=== PATIENT | male | born 1945 | race Caucasian/White ===

== ENCOUNTER 2020-12-31 16:35 | Inpatient (IN) | payer MEDICARE, MEDICAID ==
[~2020-12-31] VITALS: Ht 167.6 cm; Wt 68.9 kg
[2020-12-31] MEDS ORDERED: DEXTROSE 50% WATER 50ML SYRINGE IV ONE (17:00)
[2020-12-31] MEDS ORDERED: PIPERACILLIN/TAZOBACTAM 3.375GM/50ML PREMIX IV ONE (17:00)
[2020-12-31] MEDS ORDERED: PIPERACILLIN/TAZ 3.375G PREMIX 50 ML IV ONE (17:00)
[2020-12-31 18:06] LABS: BASOPHILS % 0.2 % (0.0-2.0); EOSINOPHILS % 0.7 % (0.0-5.0); HEMATOCRIT. 26.7 % (42.0-52.0); HEMOGLOBIN. 8.9 g/dL (14.0-18.0); LYMPHOCYTES % 7.2 % (20.0-50.0); MEAN CORPUSCULAR HEMOGLOBIN 28.8 pg (28.0-32.0); MEAN CORPUSCULAR VOLUME 86.5 fL (80.0-94.0); MEAN PLATELET VOLUME 7.3 fl (7.4-10.4); NEUTROPHILS % 84.9 % (40.0-76.0); PLATELET 427 x1000/uL (130-400); RED BLOOD CELL COUNT 3.09 mill/uL (4.7-6.1); RED CELL DISTRIBUTION WIDTH 13.6 % (11.6-14.6)
[2020-12-31 18:13] LABS: CHLORIDE 111 mEq/L (98-107)
[2020-12-31 18:52] LABS: D-DIMER 4.15 mg/L FEU (<0.50); INR 1.2; PROTHROMBIN TIME 12.4 sec (9.6-11.0)
[2020-12-31 20:26] LABS: CLARITY URINE CLEAR (CLEAR); COLOR URINE YELLOW (YELLOW); KETONES URINE NEGATIVE (NEGATIVE); LEUKOCYTE ESTERASE URINE NEGATIVE (NEGATIVE); NITRITE URINE NEGATIVE (NEGATIVE); OCCULT BLOOD URINE TRACE (NEGATIVE); PROTEIN URINE 1+ (NEGATIVE); SPECIFIC GRAVITY URINE 1.019 (1.005-1.030); UROBILINOGEN URINE 0.2 E.U./dL (0.2-1.0)
[2021-01-01] VITALS (7 sets, daily range): BP systolic 110–159; BP diastolic 54–88
[2021-01-01] MEDS ORDERED: DEXTROSE 50% WATER 50ML SYRINGE IV SCH (01:00)
[2021-01-01] MEDS: DEXT 10% WATER 1,000 ML IV SCH ×3 (01:05→22:17)
[2021-01-01] MEDS ORDERED: DEXTROSE 50% WATER 50ML SYRINGE IV PRN (04:00)
[2021-01-01] MEDS: ONDANSETRON HCL 4MG/2ML INJ IV PRN ×2 (05:50→17:21)
[2021-01-01] MEDS: BLOOD SUGAR DIAGNOSTIC STRIP TEST SCH ×4 (06:33→22:10)
[2021-01-01] MEDS: INSULIN LISPRO 100 UNITS/ML SUBCUT SCH ×4 (07:50→21:00)
[2021-01-01 08:19] LABS: HEMATOCRIT 25.9 % (42.0-52.0); HEMOGLOBIN 8.5 g/dL (14.0-18.0); MEAN CORPUSCULAR HEMOGLOBIN 28.4 pg (28.0-32.0); MEAN CORPUSCULAR VOLUME 86.1 fL (80.0-94.0); PLATELET 388 x1000/uL (130-400); RED BLOOD CELL COUNT 3.01 mill/uL (4.7-6.1); RED CELL DISTRIBUTION WIDTH 13.4 % (11.6-14.6)
[2021-01-01] MEDS ORDERED: ASPIRIN 81MG TABLET PO SCH (09:00)
[2021-01-01] MEDS: AMLODIPINE 10MG TABLET PO SCH (09:00)
[2021-01-01] MEDS ORDERED: NALOXONE HCL 0.4MG/ML VIAL IV PRN (11:45)
[2021-01-01] MEDS: MORPHINE SULFATE 2 MG/ML CPJ (NOT FOR IM USE) IV PRN (12:23)
[2021-01-01 14:55] LABS: FOLIC ACID (FOLATE) SERUM >20 ng/mL ng/mL (>5.38)
[2021-01-01 15:06] LABS: VITAMIN B12 SERUM 1142 pg/mL (211-911)
[2021-01-01 15:14] LABS: TOTAL IRON BINDING CAPACITY 206 ug/dL (250-450)
[2021-01-01 15:17] LABS: FERRITIN 159 ng/mL (22-322)
[2021-01-01] MEDS: METRONIDAZOLE 500 MG PREMIX 100 ML IV SCH ×2 (16:29→22:09)
[2021-01-01] MEDS: SUCRALFATE 1 G/10 ML UDC PO SCH ×2 (17:21→22:09)
[2021-01-01] MEDS: PANTOPRAZOLE SODIUM 40 MG/VIAL IV SCH (17:21)
[2021-01-01] MEDS: IRON SUCROSE COMPLEX 100 MG/5 ML ML IV SCH (22:10)
[2021-01-02] VITALS: BP 103/64
[2021-01-02 04:00] VITALS: BP 125/59
[2021-01-02 05:28] LABS: BASOPHILS % 0.3 % (0.0-2.0); EOSINOPHILS % 1.3 % (0.0-5.0); HEMATOCRIT. 25.8 % (42.0-52.0); HEMOGLOBIN. 8.5 g/dL (14.0-18.0); LYMPHOCYTES % 13.6 % (20.0-50.0); MEAN CORPUSCULAR HEMOGLOBIN 28.5 pg (28.0-32.0); MEAN CORPUSCULAR VOLUME 86.4 fL (80.0-94.0); MEAN PLATELET VOLUME 7.4 fl (7.4-10.4); MONOCYTES % 8.7 % (2.0-8.0); NEUTROPHILS % 76.1 % (40.0-76.0); PLATELET 385 x1000/uL (130-400); RED BLOOD CELL COUNT 2.98 mill/uL (4.7-6.1); RED CELL DISTRIBUTION WIDTH 13.5 % (11.6-14.6)
[2021-01-02] MEDS: METRONIDAZOLE 500 MG PREMIX 100 ML IV SCH ×3 (06:16→22:45)
[2021-01-02] MEDS: SUCRALFATE 1 G/10 ML UDC PO SCH ×4 (06:28→21:00)
[2021-01-02] MEDS: DEXT 10% WATER 1,000 ML IV SCH (06:29)
[2021-01-02] MEDS: BLOOD SUGAR DIAGNOSTIC STRIP TEST SCH ×4 (07:20→22:46)
[2021-01-02] MEDS: INSULIN LISPRO 100 UNITS/ML SUBCUT SCH ×4 (07:50→21:00)
[2021-01-02 08:00] VITALS: BP 122/66
[2021-01-02] MEDS: AMLODIPINE 10MG TABLET PO SCH (09:00)
[2021-01-02] MEDS: PANTOPRAZOLE SODIUM 40 MG/VIAL IV SCH ×2 (10:09→17:15)
[2021-01-02] MEDS: SODIUM CHLORIDE 0.45% 1,000 ML IV SCH ×2 (10:10→22:45)
[2021-01-02 12:00] VITALS: BP 126/55
[2021-01-02 16:00] VITALS: BP 132/60
[2021-01-02 20:00] VITALS: BP 118/65
[2021-01-02] MEDS: IRON SUCROSE COMPLEX 100 MG/5 ML ML IV SCH (22:45)
[2021-01-03] VITALS: BP 130/76
[2021-01-03] MEDS: MORPHINE SULFATE 2 MG/ML CPJ (NOT FOR IM USE) IV PRN (00:19)
[2021-01-03 04:00] VITALS: BP 106/61
[2021-01-03] MEDS: METRONIDAZOLE 500 MG PREMIX 100 ML IV SCH ×3 (05:16→21:32)
[2021-01-03] MEDS: SUCRALFATE 1 G/10 ML UDC PO SCH ×4 (05:16→21:32)
[2021-01-03 05:49] LABS: INR 1.2; PROTHROMBIN TIME 13.1 sec (9.6-11.0)
[2021-01-03 05:53] LABS: BASOPHILS % 0.5 % (0.0-2.0); EOSINOPHILS % 2.2 % (0.0-5.0); HEMOGLOBIN. 8.7 g/dL (14.0-18.0); LYMPHOCYTES % 17.5 % (20.0-50.0); MEAN CORPUSCULAR HEMOGLOBIN 28.8 pg (28.0-32.0); MEAN CORPUSCULAR VOLUME 85.9 fL (80.0-94.0); MEAN PLATELET VOLUME 7.6 fl (7.4-10.4); MONOCYTES % 8.7 % (2.0-8.0); NEUTROPHILS % 71.1 % (40.0-76.0); PLATELET 404 x1000/uL (130-400); RED BLOOD CELL COUNT 3.02 mill/uL (4.7-6.1); RED CELL DISTRIBUTION WIDTH 13.3 % (11.6-14.6)
[2021-01-03 06:04] LABS: CHLORIDE 111 mEq/L (98-107)
[2021-01-03] MEDS: BLOOD SUGAR DIAGNOSTIC STRIP TEST SCH ×4 (07:12→21:32)
[2021-01-03] MEDS: INSULIN LISPRO 100 UNITS/ML SUBCUT SCH ×4 (07:13→21:00)
[2021-01-03 08:00] VITALS: BP 106/49
[2021-01-03] MEDS: PANTOPRAZOLE SODIUM 40 MG/VIAL IV SCH ×2 (08:47→17:15)
[2021-01-03] MEDS: AMLODIPINE 10MG TABLET PO SCH (08:47)
[2021-01-03 12:00] VITALS: BP 142/66
[2021-01-03] MEDS: SODIUM CHLORIDE 0.45% 1,000 ML IV SCH (12:04)
[2021-01-03] MEDS ORDERED: MIDAZOLAM HCL 5 MG/5 ML VIAL ONE (14:59)
[2021-01-03] MEDS ORDERED: FENTANYL CITRATE/PF 50MCG/ML 2ML VIAL ONE (14:59)
[2021-01-03] MEDS ORDERED: MIDAZOLAM HCL 5 MG/5 ML VIAL IV PRN (15:13)
[2021-01-03] MEDS: DEXT 5%/0.9% NACL 1,000 ML IV SCH (17:15)
[2021-01-03 20:00] VITALS: BP 148/46
[2021-01-03] MEDS: IRON SUCROSE COMPLEX 100 MG/5 ML ML IV SCH (21:32)
[2021-01-04] VITALS (7 sets, daily range): BP systolic 115–163; BP diastolic 41–75
[2021-01-04] MEDS: DEXT 5%/0.9% NACL 1,000 ML IV SCH ×2 (04:27→17:54)
[2021-01-04] MEDS: ACETAMINOPHEN 325MG TABLET PO PRN (04:27)
[2021-01-04] MEDS: METRONIDAZOLE 500 MG PREMIX 100 ML IV SCH ×3 (05:34→21:55)
[2021-01-04] MEDS: SUCRALFATE 1 G/10 ML UDC PO SCH ×4 (09:02→20:06)
[2021-01-04] MEDS: PANTOPRAZOLE SODIUM 40 MG/VIAL IV SCH ×2 (10:08→17:54)
[2021-01-04] MEDS: AMLODIPINE 10MG TABLET PO SCH (10:08)
[2021-01-04] MEDS: MORPHINE SULFATE 2 MG/ML CPJ (NOT FOR IM USE) IV PRN ×2 (10:38→16:46)
[2021-01-04] MEDS: INSULIN LISPRO 100 UNITS/ML SUBCUT SCH ×3 (12:50→20:10)
[2021-01-04] MEDS: BLOOD SUGAR DIAGNOSTIC STRIP TEST SCH ×3 (13:12→20:06)
[2021-01-04] MEDS: HYDROCODONE/ACETAMINOPHEN 5/325MG TABLET PO PRN (20:07)
[2021-01-05] VITALS (8 sets, daily range): BP systolic 98–134; BP diastolic 44–67
[2021-01-05] MEDS: SUCRALFATE 1 G/10 ML UDC PO SCH ×4 (06:26→22:24)
[2021-01-05] MEDS: METRONIDAZOLE 500 MG PREMIX 100 ML IV SCH ×3 (06:41→22:23)
[2021-01-05] MEDS: BLOOD SUGAR DIAGNOSTIC STRIP TEST SCH ×4 (06:45→21:40)
[2021-01-05] MEDS: INSULIN LISPRO 100 UNITS/ML SUBCUT SCH ×4 (08:35→22:24)
[2021-01-05] MEDS: DEXT 5%/0.9% NACL 1,000 ML IV SCH ×2 (08:39→22:23)
[2021-01-05] MEDS: PANTOPRAZOLE SODIUM 40 MG/VIAL IV SCH ×2 (08:39→17:14)
[2021-01-05] MEDS: AMLODIPINE 10MG TABLET PO SCH (08:39)
[2021-01-05] MEDS ORDERED: DEXTROSE 50% WATER 50ML SYRINGE IV PRN (14:00)
[2021-01-05] MEDS ORDERED: BLOOD SUGAR DIAGNOSTIC STRIP TEST SCH (17:20)
[2021-01-05] MEDS: HYDROCODONE/ACETAMINOPHEN 5/325MG TABLET PO PRN (18:28)
[2021-01-06] VITALS: BP 143/50
[2021-01-06 04:00] VITALS: BP 103/44
[2021-01-06] MEDS: SUCRALFATE 1 G/10 ML UDC PO SCH ×4 (05:12→21:35)
[2021-01-06] MEDS: METRONIDAZOLE 500 MG PREMIX 100 ML IV SCH (05:12)
[2021-01-06] MEDS: BLOOD SUGAR DIAGNOSTIC STRIP TEST SCH ×4 (07:10→20:45)
[2021-01-06] MEDS: INSULIN LISPRO 100 UNITS/ML SUBCUT SCH ×4 (07:10→21:41)
[2021-01-06] MEDS: PANTOPRAZOLE SODIUM 40 MG/VIAL IV SCH ×2 (11:09→19:10)
[2021-01-06] MEDS: AMLODIPINE 10MG TABLET PO SCH (11:10)
[2021-01-06] MEDS: DEXT 5%/0.9% NACL 1,000 ML IV SCH ×2 (11:11→23:42)
[2021-01-06] MEDS: ACETAMINOPHEN 325MG TABLET PO PRN (15:22)
[2021-01-06 20:00] VITALS: BP 100/44
[2021-01-06] MEDS: DOCUSATE SODIUM 250MG CAPSULE PO SCH (21:35)
[2021-01-07] VITALS: BP 128/63
[2021-01-07 04:00] VITALS: BP_SYST 116
[2021-01-07] MEDS: SUCRALFATE 1 G/10 ML UDC PO SCH ×4 (06:15→21:20)
[2021-01-07] MEDS: BLOOD SUGAR DIAGNOSTIC STRIP TEST SCH ×4 (07:36→21:22)
[2021-01-07] MEDS: INSULIN LISPRO 100 UNITS/ML SUBCUT SCH ×4 (07:50→21:26)
[2021-01-07 08:00] VITALS: BP 111/49
[2021-01-07] MEDS: PANTOPRAZOLE SODIUM 40 MG/VIAL IV SCH ×2 (11:49→17:41)
[2021-01-07] MEDS: DOCUSATE SODIUM 250MG CAPSULE PO SCH ×2 (11:49→17:41)
[2021-01-07] MEDS: AMLODIPINE 10MG TABLET PO SCH (11:50)
[2021-01-07] MEDS: HYDROCODONE/ACETAMINOPHEN 5/325MG TABLET PO PRN ×2 (11:53→17:44)
[2021-01-07 12:00] VITALS: BP 132/51
[2021-01-07] MEDS: DEXT 5%/0.9% NACL 1,000 ML IV SCH (13:05)
[2021-01-07 16:00] VITALS: BP 123/51
[2021-01-07 16:37] LABS: BASOPHILS % 0.7 % (0.0-2.0); EOSINOPHILS % 2.6 % (0.0-5.0); HEMOGLOBIN. 8.9 g/dL (14.0-18.0); LYMPHOCYTES % 23.1 % (20.0-50.0); MEAN CORPUSCULAR HEMOGLOBIN 29.3 pg (28.0-32.0); MEAN CORPUSCULAR VOLUME 88.8 fL (80.0-94.0); MEAN PLATELET VOLUME 7.4 fl (7.4-10.4); MONOCYTES % 10.6 % (2.0-8.0); PLATELET 377 x1000/uL (130-400); RED BLOOD CELL COUNT 3.05 mill/uL (4.7-6.1); RED CELL DISTRIBUTION WIDTH 13.9 % (11.6-14.6)
[2021-01-07 20:00] VITALS: BP 131/49
[2021-01-08] VITALS: BP 150/57
[2021-01-08] MEDS: DEXT 5%/0.9% NACL 1,000 ML IV SCH ×2 (02:00→15:49)
[2021-01-08] MEDS: HYDROCODONE/ACETAMINOPHEN 5/325MG TABLET PO PRN (02:22)
[2021-01-08 04:24] VITALS: BP 136/60
[2021-01-08] MEDS: SUCRALFATE 1 G/10 ML UDC PO SCH ×4 (06:50→21:13)
[2021-01-08] MEDS: BLOOD SUGAR DIAGNOSTIC STRIP TEST SCH ×4 (06:50→21:00)
[2021-01-08] MEDS: INSULIN LISPRO 100 UNITS/ML SUBCUT SCH ×4 (08:17→21:00)
[2021-01-08] MEDS: DOCUSATE SODIUM 250MG CAPSULE PO SCH ×2 (09:10→17:54)
[2021-01-08] MEDS: PANTOPRAZOLE SODIUM 40 MG/VIAL IV SCH ×2 (09:10→17:53)
[2021-01-08] MEDS: AMLODIPINE 10MG TABLET PO SCH (09:16)
[2021-01-08] MEDS: ACETAMINOPHEN 325MG TABLET PO PRN ×2 (15:43→21:14)
[2021-01-08] MEDS: FERROUS SULFATE 325MG TABLET PO SCH (17:53)
[2021-01-08 20:00] VITALS: BP 104/43
[2021-01-09] VITALS: BP 121/80
[2021-01-09 04:00] VITALS: BP 111/60
[2021-01-09] MEDS: SUCRALFATE 1 G/10 ML UDC PO SCH ×4 (06:24→21:51)
[2021-01-09] MEDS: HYDROCODONE/ACETAMINOPHEN 5/325MG TABLET PO PRN ×3 (06:26→18:03)
[2021-01-09] MEDS: DEXT 5%/0.9% NACL 1,000 ML IV SCH ×2 (06:35→21:52)
[2021-01-09] MEDS: INSULIN LISPRO 100 UNITS/ML SUBCUT SCH ×4 (07:50→21:57)
[2021-01-09 08:00] VITALS: BP 117/55
[2021-01-09] MEDS: BLOOD SUGAR DIAGNOSTIC STRIP TEST SCH ×4 (08:01→21:54)
[2021-01-09] MEDS: DOCUSATE SODIUM 250MG CAPSULE PO SCH ×2 (08:52→17:49)
[2021-01-09] MEDS: FERROUS SULFATE 325MG TABLET PO SCH ×3 (08:52→17:49)
[2021-01-09] MEDS: AMLODIPINE 10MG TABLET PO SCH (08:53)
[2021-01-09] MEDS: PANTOPRAZOLE SODIUM 40 MG/VIAL IV SCH ×2 (08:53→17:49)
[2021-01-09 12:00] VITALS: BP 117/58
[2021-01-09 16:00] VITALS: BP 112/56
[2021-01-09 20:00] VITALS: BP 126/60
[2021-01-10] VITALS: BP 143/70
[2021-01-10 04:00] VITALS: BP 119/71
[2021-01-10] MEDS: SUCRALFATE 1 G/10 ML UDC PO SCH ×4 (06:37→21:02)
[2021-01-10] MEDS: BLOOD SUGAR DIAGNOSTIC STRIP TEST SCH ×4 (07:04→21:03)
[2021-01-10 08:00] VITALS: BP 98/74
[2021-01-10] MEDS: DEXT 5%/0.9% NACL 1,000 ML IV SCH ×2 (08:27→21:02)
[2021-01-10] MEDS: DOCUSATE SODIUM 250MG CAPSULE PO SCH ×2 (08:27→18:26)
[2021-01-10] MEDS: FERROUS SULFATE 325MG TABLET PO SCH ×3 (08:27→18:26)
[2021-01-10] MEDS: PANTOPRAZOLE SODIUM 40 MG/VIAL IV SCH ×2 (08:27→18:27)
[2021-01-10] MEDS: INSULIN LISPRO 100 UNITS/ML SUBCUT SCH ×4 (08:29→21:03)
[2021-01-10] MEDS: AMLODIPINE 10MG TABLET PO SCH (08:30)
[2021-01-10 12:00] VITALS: BP 144/96
[2021-01-10 16:00] VITALS: BP 151/66
[2021-01-10] MEDS ORDERED: NALOXONE HCL 0.4MG/ML VIAL IV PRN (16:30)
[2021-01-10] MEDS: HYDROCODONE/ACETAMINOPHEN 5/325MG TABLET PO PRN (18:26)
[2021-01-10 20:00] VITALS: BP 148/62
[2021-01-11] VITALS: BP 150/68
[2021-01-11 04:00] VITALS: BP 152/85
[2021-01-11] MEDS: HYDROCODONE/ACETAMINOPHEN 5/325MG TABLET PO PRN ×2 (04:47→17:40)
[2021-01-11] MEDS: BLOOD SUGAR DIAGNOSTIC STRIP TEST SCH ×4 (06:52→20:04)
[2021-01-11] MEDS: SUCRALFATE 1 G/10 ML UDC PO SCH ×4 (06:52→20:04)
[2021-01-11] MEDS: FERROUS SULFATE 325MG TABLET PO SCH ×3 (06:52→17:23)
[2021-01-11 08:00] VITALS: BP 157/79
[2021-01-11] MEDS: DOCUSATE SODIUM 250MG CAPSULE PO SCH ×2 (08:44→17:23)
[2021-01-11] MEDS: AMLODIPINE 10MG TABLET PO SCH (08:44)
[2021-01-11] MEDS: PANTOPRAZOLE SODIUM 40 MG/VIAL IV SCH ×2 (08:45→17:23)
[2021-01-11] MEDS: INSULIN LISPRO 100 UNITS/ML SUBCUT SCH ×4 (08:50→20:07)
[2021-01-11] MEDS: DEXT 5%/0.9% NACL 1,000 ML IV SCH (09:47)
[2021-01-11 12:00] VITALS: BP 113/77
[2021-01-11] MEDS: ONDANSETRON HCL 4MG/2ML INJ IV PRN (12:28)
[2021-01-11 15:58] VITALS: BP 118/70
[2021-01-11 20:00] VITALS: BP 126/63
[2021-01-11 20:37] LABS: BASOPHILS % 0.9 % (0.0-2.0); EOSINOPHILS % 3.7 % (0.0-5.0); HEMOGLOBIN. 8.1 g/dL (14.0-18.0); MEAN CORPUSCULAR HEMOGLOBIN 29.9 pg (28.0-32.0); MEAN CORPUSCULAR VOLUME 89.1 fL (80.0-94.0); MEAN PLATELET VOLUME 7.6 fl (7.4-10.4); MONOCYTES % 10.1 % (2.0-8.0); NEUTROPHILS % 60.3 % (40.0-76.0); PLATELET 324 x1000/uL (130-400); RED CELL DISTRIBUTION WIDTH 14.8 % (11.6-14.6)
[2021-01-12] VITALS: BP 138/63
[2021-01-12] MEDS: ACETAMINOPHEN 325MG TABLET PO PRN ×2 (00:50→09:12)
[2021-01-12] MEDS: DEXT 5%/0.9% NACL 1,000 ML IV SCH ×2 (00:51→12:59)
[2021-01-12 04:00] VITALS: BP 147/74
[2021-01-12] MEDS: BLOOD SUGAR DIAGNOSTIC STRIP TEST SCH ×2 (06:31→12:34)
[2021-01-12] MEDS: SUCRALFATE 1 G/10 ML UDC PO SCH ×2 (06:31→12:49)
[2021-01-12] MEDS ORDERED: HYDROCODONE/ACETAMINOPHEN 5/325MG TABLET PO PRN (06:45)
[2021-01-12] MEDS: INSULIN LISPRO 100 UNITS/ML SUBCUT SCH ×2 (07:50→12:58)
[2021-01-12 08:00] VITALS: BP 139/68
[2021-01-12] MEDS: PANTOPRAZOLE SODIUM 40 MG/VIAL IV SCH ×2 (09:00→09:12)
[2021-01-12] MEDS: FERROUS SULFATE 325MG TABLET PO SCH ×2 (09:12→12:49)
[2021-01-12] MEDS: AMLODIPINE 10MG TABLET PO SCH (09:12)
[2021-01-12] MEDS: DOCUSATE SODIUM 250MG CAPSULE PO SCH (09:12)
[2021-01-12 12:00] VITALS: BP 122/53
[2021-01-12 13:47] VITALS: BP 122/53
[2021-01-12 16:00] VITALS: BP 129/50
== END 2021-01-12 17:14 | DRG 241 ==
LOC: ER 16:35 → EDBD 20:45 → MICUSO 20:45 → EDBEDREQTM 20:49 → EDBEDREQ 20:49 → 6WST 22:49 → 6EST 01-05 17:32
PROVIDERS: ADMIT Internal Medicine; ATTEND Internal Medicine
PROC: 0DB78ZX Excision of Stomach, Pylorus, Via Natural or Artificial Opening Endoscopic, Diagnostic (ICD-10-PCS; principal; 2021-01-03)
DX: K29.61 Other gastritis with bleeding (principal); N17.0 Acute kidney failure with tubular necrosis; G93.41 Metabolic encephalopathy; E44.0 Moderate protein-calorie malnutrition; K56.7 Ileus, unspecified; K22.11 Ulcer of esophagus with bleeding; K26.4 Chronic or unspecified duodenal ulcer with hemorrhage; K44.9 Diaphragmatic hernia without obstruction or gangrene; E11.649 Type 2 diabetes mellitus with hypoglycemia without coma; E11.22 Type 2 diabetes mellitus with diabetic chronic kidney disease; E87.8 Other disorders of electrolyte and fluid balance, not elsewhere classified; Z20.822 Contact with and (suspected) exposure to COVID-19; K80.20 Calculus of gallbladder without cholecystitis without obstruction; I25.10 Atherosclerotic heart disease of native coronary artery without angina pectoris; K57.90 Diverticulosis of intestine, part unspecified, without perforation or abscess without bleeding; D50.9 Iron deficiency anemia, unspecified; N18.9 Chronic kidney disease, unspecified; M17.11 Unilateral primary osteoarthritis, right knee; K29.80 Duodenitis without bleeding; Z86.73 Personal history of transient ischemic attack (TIA), and cerebral infarction without residual deficits; Z95.1 Presence of aortocoronary bypass graft; Z68.24 Body mass index [BMI] 24.0-24.9, adult; Z82.61 Family history of arthritis; Z82.49 Family history of ischemic heart disease and other diseases of the circulatory system; Z79.82 Long term (current) use of aspirin
CPT/HCPCS: 36415; 71045; 73521; 73560; 74018; 74176; 76770; 80048; 80053; 80061; 81003; 82607; 82728; 82746; 82941; 82962; 83036; 83540; 83550; 83605; 83880; 84145; 84484; 85025; 85027; 85379; 87426; 88305; 88312; 88313; 92523; 92610; 93005; 93970; 97116; 97162; 97166; 97530; 99285; C9113; J1815; J2250; J2270; J2405; J2543; J3010; J3490; J7042